=== PATIENT | male | born 1965 | race Caucasian/White ===

== ENCOUNTER → 2020-01-07 | Day surgery (SDC) | payer OTHER ==
[2020-01-03 12:08] VITALS: BMI 33.5
[~2020-01-07] MED LIST: LACTATED RINGERS 1,000 ML IV SCH; LIDOCAINE 1% (10MG/ML) FOR IV START INTRADERMA ONE; LIDOCAINE 1% INJ 10MG/ML (20 ML MDV) ONE; PROPOFOL 10 MG/ML 20 ML VIAL IV ONE
[2020-01-07 11:16] VITALS: TEMP 98.6
--- NOTE | 2020-01-07 12:31 | P.PCN ---
Date of Procedure: 01/07/20 Description of Procedure: BRIEF HISTORY: Patient is a 54 -year-old male presenting for outpatient screening or malignant neoplasm. He does report remote history of colonoscopy. No family history of colon cancer. No change in bowel habits. PROCEDURE PERFORMED: Colonoscopy with polypectomy. PREOPERATIVE DIAGNOSIS: Screening for malignant neoplasm of the colon. ESTIMATED BLOOD LOSS: Minimal. IV sedation per Anesthesia. PROCEDURE: After informed consent was obtained, the patient, was brought into the endoscopy unit. IV sedation was administered by Anesthesia under continuous monitoring. Digital rectal examination was normal. Initially the Olympus CF-190 flexible video colonoscope was then inserted in the rectum, gradually advanced into the cecum without any difficulty. Careful examination was performed as the scope was gradually being withdrawn. Ileocecal valve and the appendiceal orifice were visualized and appeared normal. Prep was excellent. Mucosa of the cecum, ascending colon, transverse colon, descending colon, sigmoid colon, and rectum appeared normal. Cold snare polypectomy of sessile polyps in the transverse colon measuring 4 mm, ascending colon measuring 4 mm and descending colon measuring 5 mm. Diminutive 2 mm cecal polyp removed with cold forcep polype ctomy. A few scattered sigmoid diverticula noted. Retroflexion was performed in the rectum and no lesions were seen. The patient tolerated the procedure well. IMPRESSION: Cold snare polypectomy of polyp from the transverse colon, ascending colon and descending colon. Diminutive cecal polyp removed with cold forcep polypectomy. Mild sigmoid diverticulosis. RECOMMENDATIONS: Findings of this examination were discussed with the patient and his . Okay to resume diet. Okay to resume medication. Await pathology from polypectomies. Recommend repeat colonoscopy in 5 years pending pathology from polypectomy.
[2020-01-07 12:51] VITALS: BP 123/82; PULSE 83; RESP 16
== END ==
LOC: ORWHC2ENDO 10:42
PROVIDERS: ATTEND Internal Medicine
DX: Z12.11 Encounter for screening for malignant neoplasm of colon (principal); D12.3 Benign neoplasm of transverse colon; D12.2 Benign neoplasm of ascending colon; D12.0 Benign neoplasm of cecum; D12.4 Benign neoplasm of descending colon; K57.30 Diverticulosis of large intestine without perforation or abscess without bleeding; I10 Essential (primary) hypertension; F17.210 Nicotine dependence, cigarettes, uncomplicated; Z79.82 Long term (current) use of aspirin; Z79.899 Other long term (current) drug therapy; Z90.49 Acquired absence of other specified parts of digestive tract; Z98.890 Other specified postprocedural states
CPT/HCPCS: 88305; 45380; 45385; J2001; J2704

== ENCOUNTER 2020-01-23 09:44 | Day surgery (SDC) | payer OTHER ==
[2020-01-21 14:58] VITALS: BMI 18.8
[~2020-01-23 09:44] MED LIST changes: +DEXAMETHASONE SOD PHOSPHATE 4 MG/ML 1 ML VIAL IV ONE; +DEXAMETHASONE SOD PHOSPHATE 4 MG/ML 1 ML VIAL IV PRN; +FAMOTIDINE 20 MG/2 ML VIAL IV PRN; +HYDROmorphone 0.5 MG/0.5 ML SYRINGE IVP PRN; -LIDOCAINE 1% (10MG/ML) FOR IV START INTRADERMA ONE; -LIDOCAINE 1% INJ 10MG/ML (20 ML MDV) ONE; +ONDANSETRON 4 MG/2 ML VIAL IVP ONE; +ONDANSETRON 4 MG/2 ML VIAL IVP PRN; +OXYMETAZOLINE 0.05% NASL SPRAY 1 SPRAY BOTTLE NASAL PRN; -PROPOFOL 10 MG/ML 20 ML VIAL IV ONE
[2020-01-23] MEDS ORDERED: METOPROLOL SUCCINATE (ER) 25 MG TAB.ER.24H PO STA (10:16)
[2020-01-23] MEDS ORDERED: OXYMETAZOLINE 0.05% NASL SPRAY 1 SPRAY BOTTLE NASAL ONE ×4 (10:17→10:32)
[2020-01-23] MEDS ORDERED: SUCCINYLCHOLINE CHLORIDE VIAL 200 MG/10 ML VIAL IV ONE (11:07)
[2020-01-23] MEDS ORDERED: MIDAZOLAM 2 MG/2 ML VIAL ONE (11:07)
[2020-01-23] MEDS ORDERED: fentaNYL (PF) 50 MCG/ML 2 ML AMP ONE (11:07)
[2020-01-23] MEDS ORDERED: PROPOFOL 10 MG/ML 20 ML VIAL IV ONE (11:07)
[2020-01-23] MEDS ORDERED: DEXAMETHASONE SOD PHOSPHATE 10 MG/ML 1 ML VIAL ONE (11:07)
[2020-01-23] MEDS ORDERED: LIDOCAINE 1% INJ 10MG/ML (20 ML MDV) ONE (11:07)
[2020-01-23] MEDS ORDERED: LIDOCAINE 1%-EPI 1:100,000 20 ML VIAL SQ ONE ×2 (11:28)
[2020-01-23] MEDS ORDERED: BACITRACIN ZINC 500 UNIT/GM OINT 28.4 GM TUBE TOPICAL ONE (11:28)
--- NOTE | 2020-01-23 12:00 | P.OP ---
Date of Procedure: 01/23/20 Preoperative Diagnosis: Deviated nasal septum Inferior turbinate hypertrophy Postoperative Diagnosis: Same Procedure(s) Performed: Septoplasty Outfracture and submucous resection inferior turbinates Anesthesia: MIRIANA Surgeon: Mitch Wright Estimated Blood Loss (ml): 5 Pathology: other (Nasal septal bone and cartilage) Condition: stable Disposition: PACU Indications for Procedure: The 54-year-old white male whose had with chronic nasal airway obstruction bilaterally right greater than left Operative Findings: Nasal septum deviated to the right which is quite significant obstructing approximately 90% of the nasal airway in the bony and cartilaginous septum inferior turbinate hypertrophy bilaterally Description of Procedure: DESCRIPTION OF PROCEDURE: The patient was brought to the operative suite, placed in the supine position. The patient underwent induction of general anesthesia with oral endotracheal intubation without difficulty. The patient was prepped and draped in the usual aseptic fashion. 1% lidocaine with 1:100,000 epinephrine was infused submucosally on both sides of the nasal septum. While this was taking vasoconstrictive effect, the inferior turbinates were infractured with a Rowe elevator. Partial submucous resection of the inferior turbinates was performed with Coblation device ablating a portion of the submucosal soft tissue. The inferior turbinates were then outfractured with a Rowe elevator. A left hemitransfixion incision was then made through the mucoperichondrial. Mucoperiosteal flap on the left elevated. Bony cartilaginous junction was disarticulated and mucoperiosteal flap on the right was elevated. Bony nasoseptal deformity were removed with Jose forceps and an inferior cartilaginous strip was removed, leaving a full 1.5 cm caudal strut. Checking intranasally, this corrected the nasal septal deformities and the hemitransfixion incision was closed with running 4-0 chromic suture. The bilateral Tavares airway splints coated in bacitracin ointment were placed in the nasal cavities and sutured transseptally with 4-0 nylon suture. The patient was then suctioned in an orogastric fashion. The patient was allowed to emerge from general anesthesia, having tolerated the procedure well and was extubated in the operating suite, transferred to postoperative recovery area in satisfactory condition.
[2020-01-23 12:14] VITALS: TEMP 97.7
[2020-01-23 13:21] VITALS: BP 119/68; PULSE 82; RESP 18
== END 2020-01-23 13:31 | disposition home or self-care (01) ==
LOC: OR 09:44
PROVIDERS: ATTEND Otolaryngology
DX: J34.2 Deviated nasal septum (principal); J34.3 Hypertrophy of nasal turbinates; Z91.048 Other nonmedicinal substance allergy status; Z79.82 Long term (current) use of aspirin; Z79.52 Long term (current) use of systemic steroids; Z79.899 Other long term (current) drug therapy; Z83.42 Family history of familial hypercholesterolemia; Z82.49 Family history of ischemic heart disease and other diseases of the circulatory system; I25.119 Atherosclerotic heart disease of native coronary artery with unspecified angina pectoris; Z95.5 Presence of coronary angioplasty implant and graft; F17.210 Nicotine dependence, cigarettes, uncomplicated
CPT/HCPCS: 30520; 30140; 88300; J2250; J0330; J1100 ×2; J2405; J0690; J2001; J3010; J2704

== ENCOUNTER → 2020-07-15 | Outpatient (CLI) | payer OTHER ==
--- NOTE | 2020-07-16 08:14 | XR ---
EXAMINATION TYPE: XR elbow complete RT DATE OF EXAM: 07/15/2020 COMPARISON: NONE HISTORY: Pain FINDINGS: Three views of the elbow demonstrate no pathologic joint effusion. The osseous structures are intact . There is no acute fracture or dislocation. IMPRESSION: 1. No acute fracture or dislocation. If symptoms persist follow-up study in 7 to 10 days could be ob tained.
== END | disposition home or self-care (01) ==
LOC: RADXRYALE 16:14
PROVIDERS: ATTEND Family Medicine
DX: M25.521 Pain in right elbow (principal)